=== PATIENT | female | born 2005 | race Caucasian/White ===

== ENCOUNTER 2025-08-24 10:26 | Emergency (ER) | payer SELFPAY ==
[2025-08-24 10:32] VITALS: BP 101/69; PULSE 88; RESP 20; TEMP 37.3; O2SAT 100
[2025-08-24 10:52] LABS: EDSTREPNEGPOS1 Negative (Negative)
[2025-08-24 11:01] LABS: EDMONONEGPOS Negative (Negative)
--- NOTE | 2025-08-24 11:47 | ED.URI ---
HPI - URI/Sore Throat General Chief Complaint: Upper Respiratory Infection Stated Complaint: Sore Throat Time Seen by Provider: 08/24/25 11:35 Source: patient and RN notes reviewed Mode of arrival: ambulatory Limitations: no limitations History of Present Illness HPI Narrative: 19-year-old female presents Express Care complaining of sore throat since last night. Patient denies any fevers advised him chills, cough, any other upper respiratory symptoms, chest pain, difficulty breathing, dysphagia, difficulty clearing secretions, excessive drooling, or other symptoms. Patient denies any significant past medical history. Related Data Allergies Allergy/AdvReac Type Severity Reaction Status Date / Time No Known Allergies Allergy Verified 08/24/25 10:40 Review of Systems Review of Systems: CONSTITUTIONAL: Denies fever, chills, or sweats. EYES: Denies visual changes, redness, or discharge. ENT: Denies rhinorrhea, congestion, or otalgia. Positive for sore throat. CARDIOVASCULAR: Denies chest pain, palpitations, or edema. RESPIRATORY: Denies cough or dyspnea. GASTROINTESTINAL: Denies abdominal pain, nausea, vomiting, or diarrhea. GENITOURINARY: Denies dysuria or hematuria. SKIN: Denies rash or itching. MUSCULOSKELETAL: Denies back pain, joint pain, or myalgia. NEUROLOGIC: Denies headache, numbness, or weakness. PSYCHIATRIC: Denies anxiety or depression. All other systems reviewed are negative, except as documented in HPI. PMFSH Comments At the time of my signature, I reviewed and agree with the nursing past medical, surgical, social, and family history. There is no relevant family history pertinent to the patient complaint. Exam Narrative: GENERAL: This is a well-nourished, well-developed adult, in no apparent distress. They are non ill-appearing, nontoxic appearing. HEAD: normocephalic, atraumatic. EYES: Sclera clear/white. Conjunctiva normal. Vision is grossly intact. Extraocular movements intact EARS: External ears normal, auditory canals clear and without drainage, TMs normal without perforation. Hearing grossly intact. NOSE: External nose normal with no obvious nasal discharge, nasal turbinates without redness, no rhinorrhea. THROAT: Mucous membranes moist, posterior pharynx erythematous red and patchy, with exudate. Tonsils erythematous 2+ without exudate. Uvula midline. NECK: Neck supple, use mild cervical lymphadenopathy, no masses or thyromegaly. CARDIOVASCULAR: Regular rate and rhythm without murmurs, gallops, or rubs. RESPIRATORY: Clear to auscultation. Breath sounds equal bilaterally. No wheezes, rales, or rhonchi. SKIN: warm, Dry, intact with no suspicious lesions or rash, good texture and turgor. NEURO: awake, alert, and oriented to person, place and time. There were no obvious focal neurologic abnormalities. EXTREMITIES: No joint tenderness, effusion, or edema noted. Course Course Emergency Course: Portions of this record may have been created with voice recognition software Level of Care: Express Care Visit Vital Signs Vital signs: Vital Signs Temperature 99.2 F 08/24/25 10:32 Pulse Rate 88 08/24/25 10:32 Respiratory Rate 20 08/24/25 10:32 Blood Pressure 101/69 08/24/25 10:32 Pulse Oximetry 100 08/24/25 10:32 Oxygen Delivery Room Air 08/24/25 10:32 Temperature 99.2 F 08/24/25 10:32 Pulse Rate 88 08/24/25 10:32 Respiratory Rate 20 08/24/25 10:32 Blood Pressure 101/69 08/24/25 10:32 Pulse Oximetry 100 08/24/25 10:32 Oxygen Delivery Room Air 08/24/25 10:32 Reviewed MDM - URI/Sore Throat MDM Narrative Medical decision making narrative: Rapid strep negative. A throat culture is pending. Rapid mono negative. Centor score 3. There is clinical suspicion for strep pharyngitis given exam findings. Through shared decision making with patient discuss awaiting antibiotic therapy prior to culture results are to go ahead and start treating presumptively for strep throat. Patient like to go ahead and start antibiotic therapy. Prescription of amoxicillin sent to pharmacy of choice. Discussed physical exam findings. Advised supportive measures and signs/symptoms to go to the ER. Pt is appropriate for outpt treatment and f/u. Differential Diagnosis Differential diagnosis: Likely upper respiratory infection, sinusitis, viral infection, pharyngitis and other (Mononucleosis) Lab Data Attestation: I reviewed the patient's lab results. Labs: Lab Results 08/24/25 08/24/25 Range/Units 10:35 10:58 POC Monoscreen Negative (Negative) POC Grp A Strep Screen Negative (Negative) Critical Care Time Critical Care Time Critical Care Time: No Discharge Plan Discharge Clinical Impression: Pharyngitis Qualifiers: Pharyngitis/tonsillitis etiology: unspecified etiology Qualified Code(s): J02.9 - Acute pharyngitis, unspecified Patient Disposition: Home Condition: Stable Instructions: Antibiotic Form, Pharyngitis (ED) Additional Instructions: Your rapid strep and mono were negative today. A throat culture will be sent off and if it is positive for strep you will be contacted. You have elected to go ahead and start treatment for presumptive strep throat. ?Please take the amoxicillin as prescribed until gone. ?You will be contagious for 24 hours after starting the medication. ?After 24 hours on antibiotics throw tooth brush away and start using a new one. Wash your sheets and cup/water bottle that is used daily. Do not share drinks. Take Tylenol or Ibuprofen as needed for pain or fever, follow instructions on the bottle. ?Rest and stay hydrated. ?Follow up with your PCP in 3 days if symptoms are not improving. ?Go to the ER immediately if you develop worsening symptoms such as shortness of breath, difficulty swallowing. ? Patient Language: Wolof Prescriptions: New amoxicillin 500 mg tablet 500 mg PO Q12H 10 Days Qty: 20 0RF Follow-up/Referrals: PHYSICIAN,DESIGN PRINTER [facility] [Primary Care Provider, Internal Medicine] Stand Alone Forms: Work/School Release IP Time of Disposition: 11:45
== END 2025-08-24 11:47 | disposition home or self-care (01) ==
DX: J02.9 Acute pharyngitis, unspecified (principal)
CPT/HCPCS: 36416; 86308; 87081; 87880; 99213; G0463